=== PATIENT | female | born 1990 | race Caucasian/White ===

== ENCOUNTER 2017-08-11 23:07 | Emergency (ER) | payer MEDICAID, OTHER ==
[~2017-08-11] VITALS: Ht 162.6 cm; Wt 59.1 kg
[2017-08-11 23:08] VITALS: BP 144/81; PULSE 89; RESP 16; TEMP 99; O2SAT 96
--- NOTE | 2017-08-11 23:40 | PD ---
HPI Chief Complaint: Skin Problem Time Seen by Provider: 23:31 Travel History International Travel<30 days: No Contact w/Intl Traveler<30days: No Traveled to known affect area: No History of Present Illness HPI Patient's 26-year-old female presenting to the emergency room for evaluation of abscesses to her left forearm. Patient admits to injecting IV Dilaudid into her arm. She states that the abscesses have been getting progressively worse over the last week. She reports the pain is 8 out of 10, she states it's throbbing. There are no alleviating factors. Pain is exacerbated with movement and touch. Symptom severity is moderate. PFSH Past Medical History Depression: Yes Diminished Hearing: No Psychiatric: Yes (not diagnosed) Reproductive: Yes Immunizations Current: Yes Tetanus Vaccination: Never Vaccinated Influenza Vaccination: No ?: Not : 4 Para: 3 Miscarriage: 0 : 1 Past Surgical History Surgical History: No Previous Surgery Gynecologic Surgery: Yes (Biopsy - Cervical Dysplagia per pt.) Social History Alcohol Use: No Tobacco Use: Yes (1PPD) Substance Use: Yes (Marijuanna - maybe once a week per pt,iv dil today 08/11/17) Allergies-Medications (Allergen,Severity, Reaction): Coded Allergies: No Known Allergies (Verified Allergy, Unknown, 08/11/17) Per pt. Reported Meds & Prescriptions Reported Meds & Active Scripts Active No Active Prescriptions or Reported Medications Review of Systems Except as stated in HPI: all other systems reviewed are Neg General / Constitutional: No: Fever HENT: No: Headaches Cardiovascular: No: Chest Pain or Discomfort Respiratory: No: Shortness of Breath Gastrointestinal: No: Nausea Musculoskeletal: Positive: Myalgias, Edema, Pain Skin: Positive Lumps, Positive Change in Pigmentation Physical Exam Narrative GENERAL: Well-developed, well-nourished, alert. Presenting in no acute distress. SKIN: Warm and dry. Erythema from left AC to mid forearm. There are 2 large 3 cm fluctuant lesions to the left inner forearm. Skin is warm to touch. HEAD: Atraumatic. Normocephalic. EYES: Pupils equal and round. No scleral icterus. No injection or drainage. ENT: No nasal bleeding or discharge. Mucous membranes pink and moist. NECK: Trachea midline. No JVD. CARDIOVASCULAR: Regular rate and rhythm. RESPIRATORY: No accessory muscle use. Clear to auscultation. Breath sounds equal bilaterally. GASTROINTESTINAL: Abdomen soft, non-tender, nondistended. Hepatic and splenic margins not palpable. MUSCULOSKELETAL: Extremities without clubbing, cyanosis, or edema. No obvious deformities. NEUROLOGICAL: Awake and alert. No obvious cranial nerve deficits. Motor grossly within normal limits. Five out of 5 muscle strength in the arms and legs. Normal speech. PSYCHIATRIC: Appropriate mood and affect; insight and judgment normal. Data Data Last Documented VS Vital Signs Date Time Temp Pulse Resp B/P (MAP) Pulse Ox O2 Delivery O2 Flow Rate FiO2 08/11/17 23:10 (102) 08/11/17 23:08 99.0 89 16 96 Room Air Orders Orders Complete Blood Count With Diff (08/11/17 23:33) Comprehensive Metabolic Panel (08/11/17 23:33) Blood Culture (08/11/17 23:33) Case Management Consult (08/11/17 ) Asp:No Reaction To [place]/Vanc (Asp Crit (08/11/17 23:45) Asp: Does Not Meet Inpt Admit (Asp Crit: (08/11/17 23:45) Asp: Iv Antibiotics Admit Only (Asp Crit (08/11/17 23:45) Asp: Location Of [facility] Admin (Asp Crit: (08/11/17 23:45) [facility] ([facility] (08/11/17 23:45) Iv Access Insert/Monitor (08/11/17 23:33) Wound Culture And Gram Stain (08/11/17 23:33) Morphine Inj (Morphine Inj) (08/12/17 00:15) Ondansetron Inj (Zofran Inj) (08/12/17 00:15) Sodium Chlor 0.9% 1000 Ml Inj (Ns 1000 M (08/12/17 00:15) Dalbavancin Inj (Dalvance Inj) (08/12/17 00:36) Labs Laboratory Tests Test 08/12/17 00:00 White Blood Count 12.5 TH/MM3 Red Blood Count 3.90 MIL/MM3 Hemoglobin 12.1 GM/DL Hematocrit 34.8 % Mean Corpuscular Volume 89.3 FL Mean Corpuscular Hemoglobin 31.1 PG Mean Corpuscular Hemoglobin Concent 34.8 % Red Cell Distribution Width 13.2 % Platelet Count 335 TH/MM3 Mean Platelet Volume 8.6 FL Neutrophils (%) (Auto) 72.8 % Lymphocytes (%) (Auto) 17.5 % Monocytes (%) (Auto) 7.8 % Eosinophils (%) (Auto) 1.6 % Basophils (%) (Auto) 0.3 % Neutrophils # (Auto) 9.1 TH/MM3 Lymphocytes # (Auto) 2.2 TH/MM3 Monocytes # (Auto) 1.0 TH/MM3 Eosinophils # (Auto) 0.2 TH/MM3 Basophils # (Auto) 0.0 TH/MM3 CBC Comment DIFF FINAL Differential Comment Blood Urea Nitrogen 11 MG/DL Creatinine 0.66 MG/DL Random Glucose 85 MG/DL Total Protein 8.3 GM/DL Albumin 3.3 GM/DL Calcium Level 8.4 MG/DL Alkaline Phosphatase 72 U/L Aspartate Amino Transf (AST/SGOT) 34 U/L Alanine Aminotransferase (ALT/SGPT) 21 U/L Total Bilirubin 0.5 MG/DL Sodium Level 138 MEQ/L Potassium Level 4.2 MEQ/L Chloride Level 103 MEQ/L Carbon Dioxide Level 30.0 MEQ/L Anion Gap 5 MEQ/L Estimat Glomerular Filtration Rate 109 ML/MIN MDM Medical Decision Making Medical Screen Exam Complete: Yes Emergency Medical Condition: Yes Interpretation(s) Vital Signs Date Time Temp Pulse Resp B/P (MAP) Pulse Ox O2 Delivery O2 Flow Rate FiO2 08/11/17 23:10 (102) 08/11/17 23:08 99.0 89 16 144/81 (102) 96 Room Air Differential Diagnosis Cellulitis versus abscess versus sepsis versus other Narrative Course Patient is a 26-year-old IV drug user presenting for evaluation of abscesses to her left inner forearm. Patient's vital signs are stable. Labs ordered and pending, patient will be given Dalvance. Please see procedure report for I&D. CBC with a white count of 12.5 with left shift. Chemistry is unremarkable. Wound culture and blood cultures are pending. Patient is receiving Blake's, she tolerated I&D well. She was given morphine and Zofran for pain. Patient was strongly encouraged to avoid any further IV use. She is encouraged to follow-up at [facility]. She is encouraged to return to emergency department in new or worsening symptoms. Patient verbalized understanding of instructions. Patient stable for discharge. Procedures Procedure Narrative After the risks and benefits were discussed the following procedure was performed: 2 separate site on left inner forearm. both with same incisions. INCISION AND DRAINAGE OF ABSCESS: The area was prepped and was sterilely draped. A subcutaneous wheal of 1 % Xylocaine with a total number 2 mL was used to anesthetize the area. The area was properly anesthetized. A number 11 scalpel was used to make a 1 -cm incision across the area of the abscess. Cultures were obtained. The abscess was drained an irrigated with normal saline. Quarter inch iodoform packing was placed in the wound. Sterile dressing applied. Patient advised to have packing removed in two days. Diagnosis Primary Impression: Cellulitis and abscess of other specified site Additional Impression: Polysubstance dependence Referrals: [facility] Patient Instructions: Abscess (GEN), Abscess Incision and Drainage (GEN), Cellulitis (ED), General Instructions Additional Instructions: Return to emergency department in 48 hours for reevaluation and to have packing removed Change dressings daily and as needed for soiling Return to emergency department immediately for any new or worsening symptoms Avoid further IV drug use, follow-up with [facility] Med/Other Pt SpecificInfo: No Change to Meds Scripts No Active Prescriptions or Reported Meds Disposition: 01 DISCHARGE HOME Condition: Stable Rhiannon Gamboa Aug 11, 2017 23:40
[2017-08-11] MEDS ORDERED: ASP: Does not meet inpatient admission criteria OTHER ONE (23:45)
[2017-08-11] MEDS ORDERED: MISCELLANEOUS PHARMACY INFORMATION XX ONE (23:45)
[2017-08-11] MEDS ORDERED: ASP: Only reason for admit - IV antibiotics OTHER ONE (23:45)
[2017-08-11] MEDS ORDERED: ASP: Location of Dalbavancin administration OTHER ONE (23:45)
[2017-08-11] MEDS ORDERED: ASP: No known hypersensitivity to Vanco, Telavancin, Dalbavancin OTHER ONE (23:45)
[2017-08-12] MEDS ORDERED: MORPHINE SULFATE 2 MG/ML INJ IV PUSH ONE (00:15)
[2017-08-12] MEDS ORDERED: ONDANSETRON HCL 4 MG/2 ML VIAL IV PUSH ONE (00:15)
[2017-08-12] MEDS ORDERED: SODIUM CHLOR 0.9% 1000 ML INJ 1,000 ML IV ONE (00:15)
[2017-08-12 00:31] LABS: AUTOMATED NEUTROPHIL # 9.1 TH/MM3 (1.8-7.7); BASOPHIL % 0.3 % (0.0-2.0); EOSINOPHIL # 0.2 TH/MM3 (0-0.4); EOSINOPHIL % 1.6 % (0.0-4.0); HEMATOCRIT 34.8 % (35.0-46.0); HEMOGLOBIN 12.1 GM/DL (11.6-15.3); LYMPH % 17.5 % (9.0-44.0); LYMPHOCYTE # 2.2 TH/MM3 (1.0-4.8); MEAN CELL VOLUME 89.3 FL (80.0-100.0); MEAN CORPUSCULAR HEMOGLOBIN 31.1 PG (27.0-34.0); MEAN CORPUSCULAR HGB CONC 34.8 % (32.0-36.0); MEAN PLATELET VOLUME 8.6 FL (7.0-11.0); MONO % 7.8 % (0.0-8.0); NEUT % 72.8 % (16.0-70.0); PLATELET COUNT 335 TH/MM3 (150-450); RED CELL DISTRIBUTION WIDTH 13.2 % (11.6-17.2); WHITE BLOOD COUNT 12.5 TH/MM3 (4.0-11.0)
[2017-08-12] MEDS ORDERED: DALBAVANCIN INJ 1,500 MG in DEXTROSE 5% IN WATE 500 ML INJ 500 ML IV STA ×2 (00:36)
[2017-08-12 00:44] LABS: ALBUMIN 3.3 GM/DL (3.4-5.0); ALKALINE PHOSPHATASE 72 U/L (45-117); ALT (GPT) 21 U/L (10-53); AST (GOT) 34 U/L (15-37); BLOOD UREA NITROGEN 11 MG/DL (7-18); CALCIUM 8.4 MG/DL (8.5-10.1); CHLORIDE 103 MEQ/L (98-107); CREATININE 0.66 MG/DL (0.50-1.00); GLOMERULAR FILTRATION RATE 109 ML/MIN (>89); GLUCOSE,RANDOM 85 MG/DL (74-106); SODIUM (NA) 138 MEQ/L (136-145); TOTAL BILIRUBIN ADULT 0.5 MG/DL (0.2-1.0); TOTAL PROTEIN 8.3 GM/DL (6.4-8.2)
== END 2017-08-12 02:36 | disposition home or self-care (01) ==
LOC: NEPD 23:07
DX: L02.414 Cutaneous abscess of left upper limb (principal); L03.114 Cellulitis of left upper limb; B95.61 Methicillin susceptible Staphylococcus aureus infection as the cause of diseases classified elsewhere; F19.20 Other psychoactive substance dependence, uncomplicated; F32.9 Major depressive disorder, single episode, unspecified; F17.200 Nicotine dependence, unspecified, uncomplicated
CPT/HCPCS: 10061; 80053; 85025; 86403; 87040; 87070; 87186; 96365; 96375; 99284; J0875; J2270; J2405; J7030; J7060

== ENCOUNTER 2017-10-12 23:55 | Emergency (ER) | payer SELFPAY ==
[~2017-10-12] VITALS: Ht 162.6 cm; Wt 60.0 kg
[2017-10-13 00:28] VITALS: BP 133/86; PULSE 84; RESP 18; TEMP 98.3; O2SAT 100
[2017-10-13 00:44] VITALS: BP 137/92; PULSE 81; RESP 18; O2SAT 99
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
== END 2017-10-13 05:10 | disposition home or self-care (01) ==
LOC: NEPE 23:55
DX: S20.229A Contusion of unspecified back wall of thorax, initial encounter (principal); J32.0 Chronic maxillary sinusitis; F17.200 Nicotine dependence, unspecified, uncomplicated; Y08.09XA Assault by strike by other specified type of sport equipment, initial encounter; Y93.55 Activity, bike riding
CPT/HCPCS: 70450; 70486; 72125; 72128; 99284